=== PATIENT | female | born 1970 | race Hispanic/Latino ===

== ENCOUNTER 2022-03-29 12:47 | Outpatient (CLI) | payer OTHER | END 2022-03-29 12:48 | disposition home or self-care (01) | LOC: BICRAD 12:47 | PROVIDERS: ATTEND Family Medicine | DX: M79.672 Pain in left foot (principal) ==

== ENCOUNTER 2024-10-15 11:54 | Outpatient (CLI) | payer OTHER | END 2024-10-15 11:55 | disposition home or self-care (01) | LOC: BICMAMMO 11:54 | PROVIDERS: ATTEND Family Medicine | DX: Z12.31 Encounter for screening mammogram for malignant neoplasm of breast (principal) | CPT/HCPCS: 77063; 77067 ==